=== PATIENT | female | born 1965 | race Caucasian/White ===

== ENCOUNTER 2023-06-01 12:14 | Emergency (ER) | payer OTHER, SELFPAY ==
[2023-06-01 12:36] VITALS: BP 134/78
[2023-06-01 12:55] LABS: % Eosinophils 2.9 % (0-6); % Immature Granulocytes 0.2 % (0-0.5); % Lymphocytes 28.1 % (20.5-51.1); % Monocytes 5.7 % (1.7-9.3); % Neutrophils 62.1 % (42.2-75.2); Absolute Eosinophils 0.1 10^3/uL (0-0.7); Absolute Lymphocytes 1.2 10^3/uL (1.2-3.4); Absolute Monocytes 0.2 10^3/uL (0.1-0.6); Absolute Neutrophils 2.6 10^3/uL (1.4-6.5); Hematocrit 41.3 % (37.0-47.0); Mean Corp Hgb Conc. 33.9 g/dL (33.0-37.0); Mean Corpuscular Hgb 29.9 pg (27.0-31.0); Mean Corpuscular Volume 88.1 fL (81.0-99.0); Mean Platelet Volume 11.1 fL (7.4-10.4); Nucleated Red Blood Cells % 0 %; Platelet Count 256 10^3/uL (130-400); Red Blood Cell Count 4.69 10^6/uL (4.20-5.40); Red Cell Dist. Width 11.9 % (11.5-14.5); White Blood Cell Count 4.2 10^3/uL (4.8-10.8)
[2023-06-01 13:13] LABS: ALT (SGPT) 22 U/L (0-35); AST (SGOT) 28 U/L (14-36); Albumin 4.7 g/dl (3.5-5.0); Alkaline Phosphatase 72 U/L (38-126); Blood Urea Nitrogen 15 mg/dl (7-17); Calcium 10.3 mg/dl (8.4-10.2); Carbon Dioxide 30 mmol/L (22-30); Chloride 99 mmol/L (98-107); Glucose 91 mg/dl (70-99); Potassium 4.3 mmol/L (3.5-5.1); Sodium 137 mmol/L (135-145); Total Bilirubin 0.8 mg/dl (0.2-1.3); Total Protein 7.4 g/dl (6.3-8.2); eGFR > 60.00
[2023-06-01 13:18] LABS: Troponin I < 0.012 ng/ml
[2023-06-01 15:28] VITALS: BMI 28.2
[2023-06-01] MEDS: TORADOL 30 MG IM (15:46)
--- NOTE | 2023-06-01 15:52 | ED.GENMED ---
History of Present Illness
General
Chief Complaint: Chest Pain
Time Seen by Provider: 06/01/23 14:58
Travel History
Have you had any contact with someone who has COVID-19?: No
Do you have any symptoms of coronavirus? Fever > 100 degrees, chills, cough, shortness of breath, sore throat, loss of taste or smell, muscle aches, or headache?: No
History of Present Illness
History of Present Illness:
58-year-old female presents to the emergency department for evaluation of heart palpitations as well as intermittent chest and jaw pain over the past 2 to 3 days. Pain seems to be random without obvious provoking factors. Denies any change with
exertion or body position. Pain is nonpleuritic in nature. She does report significant increased anxiety but is never had panic attacks or anxiety to compare this to. She does have mild jaw pain at this current time. Denies any associated fevers
or chills.
Review of Systems
Review of Systems
Allergies reviewed?: Yes
All Other Systems: ROS reviewed and negative except as documented in HPI and ROS
Phy Exam
Physical Exam
Physical Exam:
GEN: Well appearing, NAD, WDWN
HEENT: Oral mucosa moist, no scleral icterus
Cardiac: Regular rate and rhythm, no murmurs
Lung: No respiratory distress, no tachypnea, lungs clear to auscultation bilaterally
MSK: No gross deformity or injuries
Skin: Good color, no pallor or jaundice, no rashes
Neuro: AO x3, moves all extremities freely
Psych: Calm, cooperative
Scores
Heart Score for Chest Pain Patients
STEMI patient?: No
History: Moderately Suspicious
ECG: Normal
Age: >45 - <65 years
Risk Factors: >/= 3 Risk Factors or History of CAD
Troponin: </= Normal Limit
Heart Score for Chest Pain Patients: 4
Heart Score Risk: 20.3% MACE over next 6 weeks
Course
Orders/Labs/Results
Orders:
Orders
06/01/23 12:17
ECG [Electrocardiogram (*1)] Urgent
Reason for Study: Palpitations
EKG- Treatment ONCE
06/01/23 12:48
Complete Blood Count/With Diff Urgent
Comprehensive Metabolic Panel Urgent
Troponin I Urgent
06/01/23 15:22
Electrocardiogram (*1) Urgent
Reason for Study: Chest Pain
EKG- Treatment ONCE
Ketorolac [Toradol] 15 mg IV NOW STA
CR Chest - 2 Views Urgent
Comment:
Reason For Exam: chest pain
06/01/23 15:31
Troponin I Urgent
06/01/23 15:42
Ketorolac [Toradol] 30 mg IM NOW STA
Abnormal Lab Results
06/01/23
12:48
WBC 4.2 L 10^3/uL
(4.8-10.8)
MPV 11.1 H fL
(7.4-10.4)
Calcium 10.3 H mg/dl
(8.4-10.2)
06/01/23 12:48
06/01/23 12:48
Vital Signs
Initial and Last Documented VS:
Initial Vital Signs
Temp Pulse Resp BP Pulse Ox
97.6 F 61 18 134/78 100
06/01/23 12:36 06/01/23 12:36 06/01/23 12:36 06/01/23 12:36 06/01/23 12:36
Last Documented Vital Signs
Temp Pulse Resp BP Pulse Ox
97.6 F 60 18 134/78 99
06/01/23 12:36 06/01/23 16:30 06/01/23 16:30 06/01/23 12:36 06/01/23 16:15
MDM/Problems Addressed
MDM/Problems Addressed:
Patient's initial and delta troponins are both negative. She has no exertional symptoms concerning for angina. Certainly she is moderate risk for coronary disease due to history of hypertension and strong family history of coronary artery disease.
Highly encouraged the patient to monitor symptoms closely and return with any worsening, will refer her through the chest pain hotline to cardiology as she may need further provocative testing as an outpatient. I did discuss the potential benefit
of initiating baby aspirin therapy however it is reasonable to wait until cardiology consultation as psychosomatic/anxiety certainly could be considered here as well
Comment
Comment:
Initial EKG independently interpreted by me shows normal sinus rhythm with occasional premature atrial contractions, no ST depressions or T wave inversions
Repeat EKG interpreted by me shows no changes compared to initial
*Critical Care Note
Total Time (30-74mins, 75-104mins- exclusive of procedures): Not Applicable
ED Attending Note
-
Portions of this chart may have been created with voice recognition software.� Occasional wrong word or��sound alike� substitutions may have occurred due to the inherent limitations of voice recognition software.
Discharge Plan
Departure
Patient Disposition: Home (Routine Discharge)
Date of Disposition: 06/01/23
Time of Disposition: 16:57
Patient with high blood pressure during this ER visit?: No
Discharge Problem:
Atypical chest pain
Instructions: Chest Pain DCA Follow Up
Prescriptions:
No Action
acetaminophen [Tylenol] 325 mg Tablet
650 mg PO DAILYPRN PRN (Reason: mild pain)
propranolol 160 mg Capsule,Extended Release 24 Hr
160 mg PO DAILY
liothyronine 25 mcg Tablet
25 mcg PO MOWEFR@0800
Patient Comments:
06/01/2023, [facility] records from 03/29/2021.
triamterene-hydrochlorothiazid 37.5-25 mg Capsule
1 cap PO DAILY
levothyroxine [Synthroid] 50 mcg Tablet
50 mcg PO MOTUWETHFRSA@0800
levothyroxine [Synthroid] 50 mcg Tablet
100 mcg PO GARCIA@0800
lisinopril 10 mg Tablet
10 mg PO DAILY
albuterol sulfate 90 mcg/actuation Hfa Aerosol Inhaler
2 puff INHALATION R DAILYPRN PRN (Reason: sob)
carboxymethylcellulose sodium [Refresh Plus] 0.5 % Dropperette
2 drp BOTH EYES DAILY
carboxymethylcellulose sodium [Refresh Plus] 0.5 % Dropperette
2 drp BOTH EYES HSPRN PRN (Reason: eye irritation)
estradiol 10 mcg Insert
10 mcg VAGINAL .2 TIMES A WEEK
Patient Comments:
06/01/2023, pt. states to take this med. twice a week but the days vary; per pt., she takes this med. when she remembers to.
Calcium + Magnesium
1 tab PO HS
Calcium + Magnesium
2 tab PO DAILY
cholecalciferol (vitamin D3)
1 tab PO DAILY
Referrals:
Juan Fitch DO [Family Provider] -
Interventions
Interventions:
*Risk Screen - Suicide Last Done: 06/01/23 12:40
*General Assessment Last Done: 06/01/23 12:40
*Neglect/Abuse Screening Last Done: 06/01/23 12:40
ED- Fall Risk Assessment Last Done: 06/01/23 15:28
*ED COVID-19 Vaccine History Last Done: 06/01/23 15:28
*Nursing Disposition Last Done: 06/01/23 17:12
ED- Cardiac Assessment Last Done: 06/01/23 15:28
Discharge Date and Time
Discharge Date/Time: 06/01/23 17:14
Print Language: [place]
[2023-06-01 16:18] LABS: Troponin I < 0.012 ng/ml
== END 2023-06-01 17:14 | disposition home or self-care (01) ==
LOC: EMR 12:14
PROVIDERS: Emergency Medicine; Physician Assistant; EMERGENCY PHYSICIAN Student in an Organized Health Care Education/Training Program; FAMILY PHYSICIAN Internal Medicine
DX: R07.89 Other chest pain (principal); R00.2 Palpitations; R68.84 Jaw pain; I10 Essential (primary) hypertension; Z82.49 Family history of ischemic heart disease and other diseases of the circulatory system
CPT/HCPCS: 99285; 71046; 80053; 84484; 85025; 93005

== ENCOUNTER → 2023-06-27 09:19 | Outpatient (REF) | payer OTHER, SELFPAY | LOC: HWRCS 09:19 | PROVIDERS: ATTENDING PHYSICIAN Internal Medicine Cardiovascular Disease; FAMILY PHYSICIAN Internal Medicine | DX: R00.2 Palpitations (principal) | CPT/HCPCS: 93306 ==

== ENCOUNTER → 2023-07-26 10:44 | Outpatient (REF) | payer OTHER, SELFPAY | LOC: WDC 10:44 | PROVIDERS: ATTENDING PHYSICIAN Student in an Organized Health Care Education/Training Program; FAMILY PHYSICIAN Internal Medicine | DX: Z12.31 Encounter for screening mammogram for malignant neoplasm of breast (principal) | CPT/HCPCS: 77063; 77067 ==

== ENCOUNTER → 2023-09-04 11:27 | Outpatient (REF) | payer OTHER, SELFPAY | LOC: HWRAD 11:27 | PROVIDERS: ATTENDING PHYSICIAN Internal Medicine Cardiovascular Disease; FAMILY PHYSICIAN Internal Medicine | DX: I65.21 Occlusion and stenosis of right carotid artery (principal); I65.23 Occlusion and stenosis of bilateral carotid arteries | CPT/HCPCS: 93880 ==

== ENCOUNTER → 2024-01-24 09:51 | Outpatient (REF) | payer OTHER, SELFPAY | LOC: RAD 09:51 | PROVIDERS: ATTENDING PHYSICIAN Surgery Vascular Surgery; FAMILY PHYSICIAN Internal Medicine | DX: Z86.79 Personal history of other diseases of the circulatory system (principal) | CPT/HCPCS: 93970 ==

== ENCOUNTER → 2024-04-10 12:59 | Outpatient (REF) | payer OTHER, SELFPAY | LOC: HWRAD 12:59 | PROVIDERS: ATTENDING PHYSICIAN Internal Medicine | DX: E04.1 Nontoxic single thyroid nodule (principal) | CPT/HCPCS: 76536 ==

== ENCOUNTER 2024-06-28 09:14 | Day surgery (SDC) | payer OTHER, SELFPAY ==
[2024-06-25 09:27] VITALS: BMI 24.5
[2024-06-25 09:54] LABS: % Basophils 1.6 % (0-2); % Eosinophils 5.3 % (0-6); % Immature Granulocytes 0.2 % (0-0.5); % Lymphocytes 29.8 % (20.5-51.1); % Monocytes 6.4 % (1.7-9.3); % Neutrophils 56.7 % (42.2-75.2); Absolute Basophils 0.1 10^3/uL (0-0.2); Absolute Eosinophils 0.2 10^3/uL (0-0.7); Absolute Lymphocytes 1.3 10^3/uL (1.2-3.4); Absolute Monocytes 0.3 10^3/uL (0.1-0.6); Absolute Neutrophils 2.5 10^3/uL (1.4-6.5); Hematocrit 36.8 % (37.0-47.0); Hemoglobin 12.5 g/dL (12.0-16.0); Mean Corpuscular Hgb 30.4 pg (27.0-31.0); Mean Corpuscular Volume 89.5 fL (81.0-99.0); Mean Platelet Volume 11.5 fL (7.4-10.4); Nucleated Red Blood Cells % 0 %; Platelet Count 265 10^3/uL (130-400); Red Blood Cell Count 4.11 10^6/uL (4.20-5.40); Red Cell Dist. Width 11.7 % (11.5-14.5); White Blood Cell Count 4.4 10^3/uL (4.8-10.8)
[2024-06-25 10:02] LABS: PT 12.5 Sec (11.4-14.6)
[2024-06-25 10:03] LABS: APTT 27.9 Sec (23.4-35.0)
[2024-06-25 10:16] LABS: Blood Urea Nitrogen 17 mg/dl (7-17); Calcium 9.8 mg/dl (8.4-10.2); Carbon Dioxide 30 mmol/L (22-30); Chloride 102 mmol/L (98-107); Estimated Creatinine Clearance 57 ml/min; Glucose 82 mg/dl (70-99); Potassium 4.2 mmol/L (3.5-5.1); Sodium 140 mmol/L (135-145); eGFR > 60.00
[2024-06-28 09:45] VITALS: BP 119/55
[2024-06-28] MEDS: NSS 500 IV (10:00)
--- NOTE | 2024-06-28 11:36 | W.SUR.PREOP ---
Pre-Operative Surgical Note
-
I have examined this patient prior to the performance of the scheduled procedure.
The patient's condition is unchanged from the time of the current History and
Physical and the patient is able to undergo the scheduled procedure.
[2024-06-28 13:17] VITALS: BP 100/59; BP 119/55
--- NOTE | 2024-06-28 13:29 | OR.RPT ---
Operative Report
Operative Report
Date of Operation: 06/28/2024
Pre Op Diagnosis: Symptomatic right lower extremity venous insufficiency
Post Op Diagnosis: Symptomatic right lower extremity venous insufficiency
Procedure: Radiofrequency endovenous ablation of right great saphenous vein (mid calf puncture site)
Surgeon: John Farias III, MD
Voice Network Engineer: Leodan Garcia MD PGY1
Anesthesia: Sedation/local
Complications: None
Estimated Blood Loss: Minimal
History and Indications for Procedure: 59-year-old female with symptomatic venous insufficiency involving her right lower extremity
Procedure in Detail: Pilar Oswald was correctly identified and placed supine on the operating table. After adequate induction of anesthesia the right leg was frog-legged and the table placed into a reverse Trendelenburg position. The right leg was
prepped and draped in the usual sterile fashion. A timeout procedure was performed with the nursing and anesthesia staff confirming the patient's identity as well as the nature and laterality of the procedure.
The right great saphenous vein was identified using ultrasound guidance. The vein was visualized from the ankle to the saphenofemoral junction. An appropriate site for access was identified at the mid calf. Local anesthesia was infiltrated into
the proposed puncture site. The right great saphenous vein was accessed with a micropuncture needle under ultrasound guidance at the mid calf and the 7 Nepali sheath was placed. Under direct ultrasound guidance the 100 cm length / 7 cm tip
radiofrequency ablation catheter was advanced towards the saphenofemoral junction. Using a real-time direct ultrasound measurement the tip of the catheter was positioned 2.5 cm from the saphenofemoral junction. The position of the catheter was
then externally marked using the white plastic doughnut on the catheter at the sheath exit site. Using ultrasound guidance Tumescent solution was then infiltrated circumferentially around the left great saphenous vein from the sheath insertion site
to the tip of the catheter near the saphenofemoral junction. At this point the table was flattened out. The position of the catheter tip was once again confirmed using ultrasound guidance. The right great saphenous vein was then ablated using 2
treatment cycles at each segment. Once completed the sheath and catheter were removed. Direct manual pressure was held on the puncture site and hemostasis was achieved. A sterile dressing was applied.
The patient's leg was cleaned and then wrapped with an Carter wrap from the toes to the proximal thigh. The patient tolerated the procedure well was taken to the recovery room in good condition.
Signed:
John Farias III, MD
[facility]
[phone] (vutt)
[2024-06-28 13:30] VITALS: BP 103/64
[2024-06-28 13:45] VITALS: BP 100/65
[2024-06-28 14:06] VITALS: BP 117/63
[2024-06-28 14:20] VITALS: BP 119/93
== END 2024-06-28 15:09 | disposition home or self-care (01) ==
LOC: CATH 09:14
PROVIDERS: ATTENDING PHYSICIAN Surgery Vascular Surgery; OTHER PHYSICIAN Internal Medicine Cardiovascular Disease; PRIMARYCARE PHYSICIAN Internal Medicine
DX: Z79.82 Long term (current) use of aspirin (principal); I87.2 Venous insufficiency (chronic) (peripheral); I10 Essential (primary) hypertension; E03.9 Hypothyroidism, unspecified; Z79.890 Hormone replacement therapy; Z79.899 Other long term (current) drug therapy
CPT/HCPCS: 36475; 36415; 80048; 85025; 85610; 85730; 93005

== ENCOUNTER → 2024-07-01 13:54 | Outpatient (REF) | payer OTHER, SELFPAY | LOC: DHVS 13:54 | PROVIDERS: ATTENDING PHYSICIAN Surgery Vascular Surgery; FAMILY PHYSICIAN Internal Medicine | DX: I87.2 Venous insufficiency (chronic) (peripheral) (principal) | CPT/HCPCS: 93971 ==

== ENCOUNTER → 2024-07-29 10:59 | Outpatient (REF) | payer OTHER, SELFPAY | LOC: WDC 10:59 | PROVIDERS: ATTENDING PHYSICIAN Internal Medicine | DX: Z12.31 Encounter for screening mammogram for malignant neoplasm of breast (principal) | CPT/HCPCS: 77063; 77067 ==

== ENCOUNTER 2024-08-12 06:19 | Day surgery (SDC) | payer OTHER, SELFPAY | END 2024-08-12 15:30 | disposition home or self-care (01) | LOC: GI 06:19 | PROVIDERS: ATTENDING PHYSICIAN Internal Medicine | DX: Z12.11 Encounter for screening for malignant neoplasm of colon (principal); K63.5 Polyp of colon; Z86.0100 Personal history of colon polyps, unspecified | CPT/HCPCS: 45380; 88305 ==

== ENCOUNTER → 2024-10-02 09:46 | Outpatient (REF) | payer OTHER, SELFPAY | LOC: RCS 09:46 | PROVIDERS: ATTENDING PHYSICIAN Nurse Practitioner; FAMILY PHYSICIAN Internal Medicine | DX: I65.21 Occlusion and stenosis of right carotid artery (principal); Z82.49 Family history of ischemic heart disease and other diseases of the circulatory system | CPT/HCPCS: 93017; 93350 ==